=== PATIENT | female | born 1960 | race Caucasian/White ===

== ENCOUNTER 2017-04-07 12:41 | Emergency (ER) | payer MEDICARE, MEDICAID ==
[~2017-04-07] VITALS: Ht 177.8 cm; Wt 92.5 kg
[2017-04-07 12:53] VITALS: BP 111/73
[2017-04-07] MEDS ORDERED: LIDOCAINE 1%, 20ML ONE (13:20)
[2017-04-07] MEDS ORDERED: DIPH,PERTUSS(ACELL),TET VAC/PF 0.5 ML IM-VACC ONE ×2 (13:23→13:30)
[2017-04-07] MEDS ORDERED: KETOROLAC 30 MG/1 ML ONE (13:23)
[2017-04-07] MEDS ORDERED: LIDOCAINE 1%, 10ML INFIL ONE (13:30)
[2017-04-07] MEDS ORDERED: KETOROLAC 30 MG/1 ML IM ONE (13:30)
== END 2017-04-07 14:52 | disposition home or self-care (01) ==
LOC: ED 14:43
DX: S61.217A Laceration without foreign body of left little finger without damage to nail, initial encounter (principal); W25.XXXA Contact with sharp glass, initial encounter; Y93.89 Activity, other specified; Y92.009 Unspecified place in unspecified non-institutional (private) residence as the place of occurrence of the external cause; Y99.9 Unspecified external cause status
CPT/HCPCS: 12041; 73130; 90471; 90715; 96372; 99284; J1885

== ENCOUNTER 2017-12-02 14:07 | Emergency (ER) | payer MEDICARE, MEDICAID ==
[~2017-12-02] VITALS: Ht 177.8 cm; Wt 91.9 kg
[2017-12-02 14:08] VITALS: BP 122/70
[2017-12-02] MEDS ORDERED: KETOROLAC 30 MG/1 ML ONE (15:29)
[2017-12-02] MEDS ORDERED: KETOROLAC 30 MG/1 ML IM ONE (15:30)
== END 2017-12-02 15:58 | disposition home or self-care (01) ==
LOC: ED 15:52
DX: M25.521 Pain in right elbow (principal); M06.9 Rheumatoid arthritis, unspecified; Z98.84 Bariatric surgery status
CPT/HCPCS: 73080; 96372; 99284; J1885